=== PATIENT | female | born 1945 ===

== ENCOUNTER 2020-05-23 20:29 | Emergency (ER) | payer OTHER ==
[~2020-05-23] VITALS: Ht 160 cm; Wt 89.8 kg
[~2020-05-23 20:29] MED LIST: ADVAIR 2501 DISK W/1 IH; BRAIN MIGHT-DH1 EACH PO; CALCIUM1 TAB PO; GLYCOTROL CAPS1 EACH PO; LOVASTATIN10 MG PO; METFORMIN HCL500 MG PO; NORVASC10 MG PO; SINGULAIR10 MG PO
[2020-05-23] MEDS ORDERED: FORTAMET500 MG (20:52)
[2020-05-23] MEDS ORDERED: SINGULAIR10 MG PO (20:53)
[2020-05-23] MEDS ORDERED: PROTONIX20 MG (20:53)
[2020-05-23] MEDS ORDERED: ATACAND4 MG (20:54)
[2020-05-23] MEDS ORDERED: ALTOPREV40 MG PO (20:54)
[2020-05-23] MEDS ORDERED: ANALPRAM HC 2.530 GM RECTAL (22:27)
== END 2020-05-23 22:37 | disposition home or self-care (01) ==
LOC: ER 20:29
DX: K64.8 Other hemorrhoids (principal)